=== PATIENT | male | born 1965 | race Caucasian/White ===

== ENCOUNTER 2020-11-30 21:00 | Emergency (ER) | payer OTHER, SELFPAY ==
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
[2020-11-30 21:00] VITALS: BP 162/76; PULSE 87; RESP 20; TEMP 36.6; O2SAT 95
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
[2020-11-30] MEDS: TETANUS,DIPHTHERIA,AC PERTUSSIS ADULT 0.5 ML (ADACEL) IM (21:40)
[2020-11-30 21:50] VITALS: BP 155/78; PULSE 80; RESP 18; TEMP 36.6; O2SAT 96
== END 2020-11-30 21:55 | disposition home or self-care (01) ==
PROVIDERS: Emergency Provider Emergency Medicine; PCP Internal Medicine
DX: S41.112A Laceration without foreign body of left upper arm, initial encounter (principal); W26.0XXA Contact with knife, initial encounter
CPT/HCPCS: 71046; 90471; 90715; 99283; A9270